=== PATIENT | male | born 1960 | race Caucasian/White ===

== ENCOUNTER 2022-03-14 18:39 | Emergency (ER) | payer MEDICAID ==
[~2022-03-14] VITALS: Ht 193 cm; Wt 100.0 kg
[~2022-03-14 18:39] MED LIST: ALBU8HFA PO; CLOP75TA34 PO; PRED10TA PO; hyDRALAzine tablet PO
[2022-03-15 08:02] VITALS: BP 146/106
[2022-03-15] MEDS ORDERED: acetaminophen 325mg tablet PO ONE (08:20)
--- NOTE | 2022-03-15 09:12 | NUR ---
Wound clinic called, they are able to see the patient at 1330 today.
== END 2022-03-15 10:31 | disposition home or self-care (01) ==
LOC: ER 18:40
DX: L97.518 Non-pressure chronic ulcer of other part of right foot with other specified severity (principal); Z79.899 Other long term (current) drug therapy; Z59.00 Homelessness unspecified
CPT/HCPCS: 99282

== ENCOUNTER 2023-12-07 20:07 | Emergency (ER) | payer MEDICAID ==
[~2023-12-07] VITALS: Ht 190.5 cm; Wt 88.9 kg
[~2023-12-07 20:07] MED LIST changes: -ALBU8HFA PO
[2023-12-07 21:31] VITALS: BP 144/99; PULSE 110; RESP 16; O2SAT 99
[2023-12-07 21:39] VITALS: TEMP 97.8
== END 2023-12-07 21:40 | disposition home or self-care (01) ==
LOC: ER 20:08
DX: S09.93XA Unspecified injury of face, initial encounter (principal); K08.89 Other specified disorders of teeth and supporting structures; Z79.899 Other long term (current) drug therapy; X58.XXXA Exposure to other specified factors, initial encounter; Y93.89 Activity, other specified; Y92.89 Other specified places as the place of occurrence of the external cause; Y99.8 Other external cause status
CPT/HCPCS: 99282